=== PATIENT | female | born 1945 | race Caucasian/White ===

== ENCOUNTER 2020-11-23 07:46 | Observation (INO) ==
--- NOTE | 2020-11-11 08:52 | ANES ---
Anesthesia Pre Procedure Eval HOME MEDICATIONS latanoprost 0.005 % eye drops 1 drp OP QPM 22 Days #25 ml 03/05/18 [Last Taken Unknown] levothyroxine 88 mcg tablet 88 mcg PO DAILY #90 tab 03/31/20 [Last Taken Unknown] metoprolol succinate 25 mg tablet,extended release 24 hr 25 mg PO DAILY #90 tab 03/31/20 [Last Taken Unknown] pravastatin 10 mg tablet 10 mg PO DAILY #90 tab 03/31/20 [Last Taken Unknown] hydrochlorothiazide 12.5 mg capsule 12.5 mg PO DAILY PRN #90 cap 10/08/20 [Last Taken Unknown] Allergies/Adverse Reactions: Allergies Allergy/AdvReac Type Severity Reaction Status Date / Time No Known Allergies Allergy Verified 09/16/20 13:27 - Planned Procedure Planned Procedure: Right Arthroplasty Total Knee Medication List Reviewed:: Yes Allergies Verified: Yes Medical History (Last Reviewed 11/11/20 @ 08:50 by Gasper Singh CRNA) COVID-19 vaccine series completed (Acute) COVID-19 vaccine administered (Acute) Breast lump Onset Date: ~2003 right breast: benign Essential hypertension Onset Date: ~11/01/12 GERD (gastroesophageal reflux disease) Onset Date: Unknown Herpes zoster Onset Date: Unknown shingles Lichen sclerosus Onset Date: ~03/26/15 Lipoma Onset Date: Unknown Uterine fibroid Onset Date: Unknown Vulvar lesion Onset Date: ~03/13/15 Hyperlipidemia Onset Date: Unknown Hypothyroidism Onset Date: Unknown Osteopenia Onset Date: ~03/13/15 Osteoporosis Onset Date: ~03/13/15 Surgical History (Last Reviewed 11/11/20 @ 08:50 by Gasper Singh CRNA) H/O breast biopsy Onset Date: ~2003 benign H/O colonoscopy Onset Date: ~2010 Dr. Jayson Bacon: WNL History of appendectomy Onset Date: ~1996 History of esophagogastroduodenoscopy (EGD) Onset Date: ~2010 Dr. Jayson Bacon: WNL History of hysterectomy Onset Date: ~1986 MARY KATE: uterine fibroids Family History (Last Reviewed 11/11/20 @ 08:50 by Gasper Singh CRNA) Brother Hypertension Myocardial infarction Hyperlipemia Heart disease Sister Myocardial infarction Father Heart disease Arthritis Emphysema of lung Mother Hypertension Heart disease Grandmother , maternal Diabetes Grandmother , paternal No problems noted. Grandfather , maternal Lung disease Grandfather , paternal No problems noted. - Family Anesthesia History Family History:: no untoward family reactions to anesthesia, no familial bleeding tendencies, no family history of clotting disorders, no family history of premature - Airway/Neck/Teeth Teeth Condition: missing - some lower teeth Denture Type: Full upper Neck Exam: full range of motion Mallampatti Score: 1 Thyromental (T-M) distance: > 6 cm Mandibulo Hyoid distance: > 3 cm - Respiratory Respiratory Physical: lungs clear Smoking Status: Former smoker - Quit 81 Sleep Apnea currently treated: No Sleep Apnea by current assessment: No - Cardiovascular Cardiac History: hypertension, hyperlipidemia Tolerate Activity: Fair Heart Sounds: S1 & S2, Regular - Gastrointestinal NPO since: 2400 - Anesthesia Assessment and Plan ASA Class: PS, II Anesthesia Type Plan: Block - Adductor canal block for post op pain relief, Spinal
[~2020-11-23 07:46] MED LIST: MORPHINE SULFATE 15 MG TABLET.SA PO PRN; ROPIVACAINE/CLONIDIN/KETOROLAC 50 ML SYRINGE IJ PRN; TRANEXAMIC ACID IN NACL,ISO-OS 1,000 MG/100 ML BAG IV PRN; ceFAZolin SODIUM 1 GM VIAL IV PRN
[2020-11-23] MEDS: RINGER'S SOLUTION,LACTATED 1,000 ML IV PRN ×2 (08:47→10:55)
[2020-11-23] MEDS ORDERED: MIDAZOLAM HCL/PF 5 MG/ML VIAL ONE (09:01)
[2020-11-23] MEDS ORDERED: BUPIVACAINE HCL/EPINEPHRINE 50 ML VIAL ONE (09:01)
[2020-11-23] MEDS ORDERED: PROPOFOL VIAL IV ONE (09:02)
[2020-11-23] MEDS ORDERED: EPINEPHrine 1 MG/ML AMPUL ONE (09:02)
[2020-11-23] MEDS ORDERED: ceFAZolin SODIUM 1 GM VIAL ONE (09:11)
[2020-11-23] MEDS ORDERED: ROPIVACAINE/CLONIDIN/KETOROLAC 50 ML SYRINGE IJ ONE (09:12)
[2020-11-23] MEDS ORDERED: ACETAMINOPHEN 500 MG TABLET PO PRN (11:40)
[2020-11-23] MEDS ORDERED: MORPHINE SULFATE 2 MG/ML DISP.SYRIN IV PRN (11:40)
[2020-11-23] MEDS ORDERED: DEXTROSE 5%-LACTATED RINGERS 1,000 ML IV PRN (11:40)
[2020-11-23] MEDS ORDERED: MAGNESIUM HYDROXIDE 30 ML UDC PO PRN (11:40)
[2020-11-23] MEDS ORDERED: ONDANSETRON HCL/PF 2 MG/ML VIAL IV PRN (11:40)
[2020-11-23] MEDS ORDERED: diphenhydrAMINE HCL 50 MG/ML VIAL IV PRN (11:40)
[2020-11-23] MEDS ORDERED: MAG HYDROX/ALUMINUM HYD/SIMETH 30 ML UDC PO PRN (11:40)
[2020-11-23] MEDS ORDERED: ZOLPIDEM TARTRATE 5 MG TABLET PO PRN (11:40)
--- NOTE | 2020-11-23 11:40 | OR ---
Operative Report - Dictated Report Narrative: Date: 11/23/2020 Preoperative diagnosis: Right knee degenerative joint disease. Postoperative diagnosis: Right knee degenerative joint disease. Procedure: Right total knee arthroplasty. Surgeon: Tristen Paniagua M.D. Tool [employer] Rep[employer]: Enoc Rivero PA-C (provided and essential set of skilled, educated hands that assisted with transfer, positioning, prepping, draping, manipulation, retraction, placement of jigs, injection, insertion of implants, irrigation, closure wounds, and dressings all of which could not be performed by the available surgical crew) Anesthesia: Spinal with regional block and local periarticular joint injection. Complications: None Specimens: Bone. Estimated blood loss: Minimal. Tourniquet time: 90 minutes at 325 millimeters of mercury. Retained implants: Depuy Attune size 7 right lugged cemented posterior stabilized femoral component. Size 6 fixed-bearing cemented tibial platform. 7 by 8 millimeter posterior stabilized cross-linked tibial insert. 38 millimeter medialized patella button. Indications: Mrs. Nichole is a 75-year-old female who has had longstanding right knee valgus arthrosis. This patient was followed in my clinic for period of time with significant complaints of right knee pain consistent with arthritic changes. She had failed conservative measures including, but not limited to, activity modification, passage of time, medications, and other conservative measures. Patient wished to proceed with surgical treatment. The risks, benefits, and alternatives were discussed in clinic. The risks of , blood clots, bleeding, infection, nerve/tendon blood vessel/ injury, malposition of components, intraoperative fracture, postoperative limited range of motion, persistent pain, failure of components, and need for additional procedures. Patient wished to proceed consent was obtained after answering all questions. Procedure: After marking the correct extremity on the floor, the patient was taken to the operating room. A timeout was performed. IV antibiotics consisting of Ancef were administered prior to the procedure. A regional followed by spinal anesthetic was induced by anesthesia, per my request, on the operative table with all bony prominences well-padded. Wilson catheter was placed, and a bump was placed under the operative side buttock. SCDs and ARMANDO hose were utilized on the nonoperative leg. A well-padded tourniquet was applied to the operative thigh. The operative leg was then pre-scrubbed with alcohol, prepped, and draped in a standard sterile fashion. After exsanguinating the extremity with an Esmarch bandage, the tourniquet was inflated. After marking out the anterior knee for standard incision centered over the patella, the skin was incised and dissected down to the joint retinaculum. The joint retinaculum was marked out as well as the horizontal axis of the patella, and a standard medial parapatellar arthrotomy was then made. The most proximal aspect of the quadriceps tendon and the patella tendon insertion were protected from release. A partial synovectomy was performed as well as a resection of the infrapatellar fat pad. The distal femoral fat pad proximal to the trochlea was also resected using cautery. The soft tissues were elevated off the medial as pect of the proximal tibia using a Way elevator ensuring that we did not transect the medial collateral ligament. Upon initial evaluation range of motion was approximately 0 degrees to 120 degrees of flexion. There were signs of advanced arthrosis in the lateral and patellofemoral and medial joint spaces. There were large marginal osteophytes which were removed with a rongeur. The knee was hyperflexed and the patella was tucked laterally. Protecting the surrounding soft tissues with Homans, an entry drill was placed down the femoral canal using Whitesides line for guidance into the entry point. The intramedullary femoral alignment leonard was utilized in order to cut the distal femur in 6 degrees of valgus resecting 10 millimeters of bone. Next the distal femur was sized to a size 7. A posterior referencing guide was utilized to place the distal femoral cutting block in 3 degrees of external rotation. This was pinned into place. The rotation was confirmed both visually and based on anatomic landmarks. The 4 in 1 cutting jig of the appropriate size was utilized in order to make all bony cuts. The francesca wing was used to ensure no notching. Retractors were utilized in order to protect surrounding soft tissues. This cut did not result in any excessive notching. We then cut the box centered over the distal femur. This allowed for resection of the anterior and posterior cruciate ligaments. I then turned my attention to the preparation of the tibia. Using an extra medullary tibial alignment leonard, 1 millimeters of bone was resected off the lateral articular surface. This was made perpendicular to the mechanical axis of the joint with the alignment leonard centered over the ankle mortise. The alignment leonard was checked and was noted to be parallel to the mechanical axis, centered over the medial one third of the tibial tubercle, paralleling the anterior surface of the tibia. We then turned our attention to the remaining meniscus and soft tissues. These were removed while protecting the surrounding ligaments and soft tissues. The marginal osteophytes off the anterior, posterior, medial, lateral aspects of the femur and tibia were removed. The tibia was sized out to a size 6. Next the tibia was drilled and punched in an externally rotated position. Next the trial femur and a series of tibial inserts were utilized in order to allow for full extension and maximal flexion. It was found that a 8 millimeter insert gave the best range of motion and stability at multiple flexion points as well as at full extension there was less than 2 mm of gapping both medially and laterally. There is minimal anterior translation with the knee at 90 degrees of flexion and no signs of being able to dislocate the knee. The patella was then prepared. The initial thickness was 22 millimeters. This was reamed down to 12 millimeters parallel to the anterior surface of the patella. It was sized out to a size 38 medialized patella button. This was then drilled and trialed. Without any medial restraint the patella tracked appropriately and did not sublux or dislocate. At this point, it was felt these were the appropriate sized implants, and all trials were removed. The standard periarticular joint injection consisting of ropivacaine, Toradol, and epinephrine were injected into the periarticular joint tissues. The bony surfaces were thoroughly irrigated with a pulsatile-suction saline irrigation device. A bone plug from the prior resected anterior chamfer cut was placed into the drill hole at the distal femur. The bony surfaces were then dried in preparation for placement of the implants. The cement was vacuum mixed per the auto service dispatcher's instructions. The cement was placed on the dry bony surfaces and posterior aspect of the implants. The implants were impacted into place, removing all extruded cement. At this point anesthesia administered tranexamic acid per protocol intravenously. The knee was placed in extension with axial loading with the trial insert while the cement cured. Once the cement cured, all remaining extruded cement was removed. The knee was placed through a range of motion with the trial insert to ensure appropriate range of motion and stability. Final range of motion was approximately 0 to 120 degrees. The knee was again thoroughly irrigated with pulsatile saline lavage. The final polyethylene insert was then impacted into place ensuring no retained soft tissues. The remaining periarticular joint injection was injected. A medium Hemovac drain was placed exiting superior laterally. The knee was then placed over a triangle and the arthrotomy was closed with interrupted #1 Vicryl after thoroughly irrigating the joint. The deep and subcutaneous tissues were closed with interrupted 0 and 3-0 Vicryl respectively. Skin was closed with a running subcutaneous 3-0 Monocryl and Prineo Dermabond dressing. 4 x 4's, Sof-Rol, and a full leg Kayode wrap were applied. All sponge, needle, blade, and instrument counts were correct prior to closing the wounds. Postoperative condition: The patient was awoken and transferred to the postanesthesia care unit in stable condition. Plan is to be admitted to the inpatient medical/surgical floor postoperatively for 24 hours of IV antibiotics, physical therapy, occupational therapy, and medical comanagement. Patient will be weightbearing as tolerated with range of motion as tolerated. DVT prophylaxis will be with SCDs, ARMANDO hose, and pharmacological anticoagulation. Anticipated hospital stay is approximately 1-3 days.
[2020-11-23] MEDS ORDERED: HYDROCHLOROTHIAZIDE 12.5 MG CAPSULE PO PRN (11:42)
--- NOTE | 2020-11-23 12:15 | ANES ---
Anesthesia Procedure Note Procedure Note: ANESTHESIA PROCEDURE NOTE Date of Procedure: 11/23/2020 Time of procedure: 9:55 AM. Performed by: SHERIE Cordoba CRNA, MSN Gold Letterer: Nini Jackson RN. Preprocedure diagnosis: Post total knee arthroplasty pain. Post procedure diagnosis: Same. Procedure: Right adductor Canal Block. Indications: Post right total knee arthroplasty pain relief. Findings: See below. Details of the procedure: The patient was brought to OR #2 and placed in supine position. The patient's right femoral area to the knee was prepped with chlorhexidine and using ultrasound guidance the right femoral artery and nerve was identified and then followed to the level of the adductor canal. Lidocaine 1% was infiltrated to the skin of the intended injection site. Under ultrasound guidance the saphenous nerve was approached with visualization of a 2 inch shielded block needle. Once saphenous nerve was identified with proximity to the needle tip, the saphenous nerve was surrounded with 30 mL bupivacaine 0.5% with 1-200,000 epinephrine. Please see radiology/ultrasound report for details and retained images of the procedure. EBL: 0 Fluids: N/A. Specimen: N/A. Post procedure condition: The patient tolerated the procedure well. No complications were noted. Thank you for this consultation. Gasper Singh CRNA, ARNP, MSN
--- NOTE | 2020-11-23 12:16 | ANES ---
Post Anesthesia Discharge - Transfer of Care Transfer of Care handoff given to nurse: Yes - Discharge from PACU Discharge from PACU when meets criteria: Yes - Alert and comfortable.
--- NOTE | 2020-11-23 12:35 | ANES ---
Post Anesthesia Assessment - Vital Signs Vitals: Last Vital Signs Temp 36.8 C 11/23/20 12:25 Pulse 79 11/23/20 12:25 Resp 16 11/23/20 12:25 BP 160/58 H 11/23/20 12:25 Pulse Ox 98 11/23/20 12:25 Airway Patency: Normal - Mental Status Level Of Consciousness: Awake, Alert, Appropriate - Pain Level Pain Score: 0 - N/V Assessment Nausea/Vomiting Presence: None Dehydration:: No
[2020-11-23] MEDS: oxyCODONE HCL/ACETAMINOPHEN 1 TAB TABLET PO PRN ×2 (12:53→20:56)
[2020-11-23] MEDS: KETOROLAC TROMETHAMINE 15 MG/ML VIAL IV SCH ×3 (13:16→22:54)
[2020-11-23] MEDS: ceFAZolin SODIUM 1 GM in DEXTROSE 5 % IN WATER 100 ML IV SCH ×4 (13:17→19:05)
[2020-11-23] MEDS ORDERED: LATANOPROST 25 DROP BTL OP SCH (17:00)
[2020-11-23] MEDS ORDERED: SIMVASTATIN 5 MG TABLET PO SCH (21:00)
[2020-11-23] MEDS ORDERED: SENNOSIDES/DOCUSATE SODIUM 1 TAB TABLET PO SCH (21:00)
[2020-11-23] MEDS: ASPIRIN 81 MG TABLET.DR PO SCH (21:44)
[2020-11-24] MEDS: ceFAZolin SODIUM 1 GM in DEXTROSE 5 % IN WATER 100 ML IV SCH ×2 (02:10)
[2020-11-24] MEDS: KETOROLAC TROMETHAMINE 15 MG/ML VIAL IV SCH ×2 (05:38→10:46)
[2020-11-24 06:21] LABS: Hematocrit 34.5 % (37.0-47.0); Hemoglobin 10.9 gm/dL (12.5-16.0); Mean Cell Volume 94.3 fl (78-100); Mean Corpuscular Hemoglobin 29.8 pg (27-31); Mean Corpuscular Hgb Conc 31.6 g/dl (32-36); Mean Platelet Volume 9.9 fl (8-12.5); Platelet Count 195 K/mm3 (150-450); Red Blood Count 3.66 M/mm3 (4.2-5.4); Red Cell Distribution Width 15.7 % (11.5-14.0); White Blood Count 8.8 K/mm3 (4.0-10.5)
[2020-11-24 06:26] LABS: Anion Gap 10.2 mmol/L (6.8-13.8); Calcium * 8.5 mg/dL (7.9-10.9); Carbon Dioxide 28.9 mmol/L (24-32.6); Estimated Creat Clear 51.6; Potassium 4.1 mmol/L (3.4-4.6)
[2020-11-24] MEDS ORDERED: LEVOTHYROXINE SODIUM 88 MCG TABLET PO SCH (07:00)
[2020-11-24] MEDS: oxyCODONE HCL/ACETAMINOPHEN 1 TAB TABLET PO PRN ×2 (08:08→12:15)
[2020-11-24] MEDS: ASPIRIN 81 MG TABLET.DR PO SCH (08:11)
[2020-11-24] MEDS ORDERED: METOPROLOL SUCCINATE 25 MG TABLET.SA PO SCH (09:00)
[2020-11-24] MEDS ORDERED: MORPHINE SULFATE 15 MG TABLET.SA PO SCH (10:15)
[2020-11-24] MEDS ORDERED: ENOXAPARIN SODIUM 40 MG/0.4 ML SYRG SC SCH (10:40)
--- NOTE | 2020-11-24 12:50 | DS ---
(1) Status post right knee replacement Problem: Acute (2) Nausea Problem: Acute (3) GERD (gastroesophageal reflux disease) Problem: Chronic (4) Hypertension Problem: Chronic (5) Hypothyroid Problem: Chronic (6) Hyperlipidemia Problem: Chronic Date of Discharge:: 11/24/20 Hospital Course: Mrs. Nichole was admitted to the floor after undergoing right total knee arthroplasty. Tolerated this well. Was admitted to the floor postoperatively for 24 hours of IV antibiotics, pain control, medical comanagement, and occupational and physical therapy. OT and PT were consulted to assist with activities of daily living and ambulation. Was made weightbearing as tolerated with range of motion as tolerated. Pain was initially controlled with IV regimen. This was transitioned to oral once tolerating a by mouth intake. Was resumed on home diet and medications. A Wilson catheter was inserted in the operating room which was discontinued by postoperative day 1. A drain was placed intraoperatively into the knee which was discontinued on postoperative day 1. Lovenox, SCDs, and ARMANDO hose were utilized for DVT prophylaxis. Vital signs remained stable to the hospital course. Labs were obtained which showed a final hemoglobin of 10.9 grams. BMP was reviewed and was stable. Physical examination throughout the hospital course showed an extremity that had sensation that was intact to light touch, palpable pulses, a benign wound, motor intact to the toes, ankle, and knee. Knee range of motion was approximately 5 degrees to 65 degrees. Once an oral pain regimen was tolerated and physical therapy goals were met, it was felt that they were stable for discharge to home. Instructions: Continue with weightbearing as tolerated and range of motion as tolerated. It is okay to shower and get the wound wet as long as there is no drainage from the wound. Do not bathe or soak the wound. If there is any drainage from the wound keep the wound clean and dry and cover with dry gauze and tape. Change every 2- 3 days as needed if there is any drainage. Cover wound while showering if there is any drainage. Continue with physical therapy. Resume home diet. Report any fever over 101.5 Fahrenheit, uncontrolled pain, increased drainage, foul odor of drainage, new or increased calf pain or shortness of breath, or any other significant complaints. 81 mg twice daily aspirin continued for 6 weeks. Continue with ARMANDO hose on the operative extremity until instructed otherwise. No driving until instructed otherwise. Follow up in approximately 2-3 weeks. Procedures Performed: see notes below List Procedures: Right total knee arthroplasty Results and Findings: Lab Pending Results 11/11/20 06:50: WBC Cancelled, Corrected WBC (auto) Cancelled, RBC Cancelled, Hgb Cancelled, Hct Cancelled, MCV Cancelled, MCH Cancelled, MCHC Cancelled, RDW Cancelled, Plt Count Cancelled, MPV Cancelled, Immature Gran % (Auto) Cancelled, Immature Gran # (Auto) Cancelled, Neutrophils % Cancelled, Lymphocytes % Cancelled, Monocytes % Cancelled, Eosinophils % Cancelled, Basophils % Cancelled, Nucleated RBC % Cancelled, Neutrophils # Cancelled, Lymphocytes # Cancelled, Monocytes # Cancelled, Eosinophils # Cancelled, Absolute Basophils Cancelled 11/11/20 06:50: Sodium Cancelled, Plasma Sodium Cancelled, Potassium Cancelled, Chloride Cancelled, Carbon Dioxide Cancelled, Anion Gap Cancelled, BUN Cancelled, Creatinine Cancelled, Est GFR (Non-Af Amer) Cancelled, BUN/Creatinine Ratio Cancelled, Random Glucose Cancelled, Calcium Cancelled 11/24/20 06:08: WBC 8.8, RBC 3.66 L, Hgb 10.9 L, Hct 34.5 L, MCV 94.3, MCH 29.8, MCHC 31.6 L, RDW 15.7 H, Plt Count 195, MPV 9.9 11/24/20 06:08: Sodium 142, Plasma Sodium 142, Potassium 4.1, Chloride 107 H, Carbon Dioxide 28.9, Anion Gap 10.2, BUN 9, Creatinine 0.82, Est GFR (Non-Af Amer) 72, BUN/Creatinine Ratio 11.0, Random Glucose 104, Calcium 8.5 Disposition: Home self-care Condition: Good Discharge Activity: Activity as tolerated, Weight bearing Discharge Diet: General/regular food Referrals: Perico Garber DO [Primary Care Provider] - Additional Patient Instructions (free text): Physical Therapy at [facility] outpatient rehab on November 26 at 8:00am. Follow up [facility] Orthopedic office appointment on MondayDecember 15 at 9:00am. Prescriptions (Any new or edited meds): Aspirin [Aspirin Enteric Coated] 81 mg PO BID #60 tablet.dr Transmission Status: Pending to [facility] #[id number] Morphine Sulfate [Ms Contin] 15 mg PO Q12H #10 tablet.sa Transmission Status: Received by [facility] #[id number] oxyCODONE HCL/ACETAMINOPHEN [Percocet 5 MG/325 MG] 1 - 2 tab PO Q4H PRN #50 tab PRN Reason: Moderate Pain (Pain Scale 4-6) Transmission Status: Received by [facility] #[id number] Sennosides/Docusate Sodium [Senokot-S] 2 tab PO HS #60 tab Transmission Status: Pending to [facility] #[id number] Ondansetron HCl [Zofran] 8 mg PO TID PRN #30 tab PRN Reason: Nausea Transmission Status: Pending to [facility] #[id number] Complete Home Medications List: Complete Home Medication List: latanoprost 0.005 % eye drops 1 drp OP QPM 22 Days #25 ml 03/05/18 levothyroxine 88 mcg tablet 88 mcg PO DAILY #90 tab 03/31/20 metoprolol succinate 25 mg tablet,extended release 24 hr 25 mg PO DAILY #90 tab 03/31/20 pravastatin 10 mg tablet 10 mg PO DAILY #90 tab 03/31/20 hydrochlorothiazide 12.5 mg capsule 12.5 mg PO DAILY PRN #90 cap 10/08/20 Aspirin [Aspirin Enteric Coated] 81 mg PO BID #60 tablet. 11/24/20 Morphine Sulfate [Ms Contin] 15 mg PO Q12H #10 tablet.sa 11/24/20 Ondansetron HCl [Zofran] 8 mg PO TID PRN #30 tab 11/24/20 Sennosides/Docusate Sodium [Senokot-S] 2 tab PO HS #60 tab 11/24/20 oxyCODONE HCL/ACETAMINOPHEN [Percocet 5 MG/325 MG] 1 - 2 tab PO Q4H PRN #50 tab 11/24/20 Amb Orders for Discharge: PT Evaluation and Treatment* Facility: [facility], Location: [facility]
[2020-11-24 14:44] VITALS: BP 157/55
== END 2020-11-24 14:35 | disposition home or self-care (01) ==
LOC: SUR 07:46 → INTOOBSV 12:40 → MS 12:40
PROVIDERS: ADMIT Orthopaedic Surgery; ATTEND Orthopaedic Surgery